=== PATIENT | female | born 1960 | race Caucasian/White ===

== ENCOUNTER 2017-05-19 09:47 | Outpatient (CLI) | payer BC | END 2017-05-19 09:48 | disposition home or self-care (01) | LOC: BICMRI 09:47 | PROVIDERS: ATTEND Orthopaedic Surgery | DX: M25.552 Pain in left hip (principal); S73.102A Unspecified sprain of left hip, initial encounter; M16.12 Unilateral primary osteoarthritis, left hip ==

== ENCOUNTER 2017-06-08 09:15 | Inpatient (IN) | payer BC ==
[2017-06-08 09:43] VITALS: BMI 19.5
--- NOTE | 2017-06-17 14:03 | HP ---
HISTORY OF PRESENT ILLNESS: The patient is a 57-year-old female with a several month history of prog ressive left hip and groin pain without injury. Pain is worse with activities. She has persisted de spite rest, restriction of activities. Attempted to use anti-inflammatory medications. This did cau se GI distress and discontinued. The pain is now interfering with day-to-day activities including wa lking, getting dressed, working, and sleeping. PAST MEDICAL HISTORY: The patient has history of hypertension, reflux, thyroid replacement, irritabl e bowel syndrome. CURRENT MEDICATIONS: Include levothyroxine, Benicar, fentanyl, Imitrex for migraine headaches, lubip rostone, spironolactone p.r.n., , Lunesta. ALLERGIES: She has no known allergies. FAMILY HISTORY: Otherwise unremarkable. SOCIAL HISTORY: Otherwise unremarkable. REVIEW OF SYSTEMS: Otherwise unremarkable. PHYSICAL EXAMINATION: GENERAL: Reveals a healthy, thin female. HEENT: Unremarkable. NECK: Supple. CHEST: Clear. HEART: Regular rate and rhythm. ABDOMEN: Soft and nontender. PELVIC/RECTAL/BREAST: Exams are deferred. EXTREMITIES: Pertinent findings of the left hip. There is tenderness in the left anterior hip and g roin area. There are no masses. There is decreased range of motion of the hip and groin pain with i nternal rotation of the hip. Leg lengths are equal and there is a left antalgic gait. NEUROVASCULAR: Intact IMAGING DATA: X-rays of the left hip reveal markedly severe DJD. MRI scan of the left hip reveals d egenerative labral tear and significant DJD to the hip which is more pronounced on plain x-rays. IMPRESSION: 1. Degenerative arthritis of left hip. 2. History of hypertension. 3. History of reflux. 4. History of thyroid replacement. 5. History of irritable bowel syndrome. PLAN: Left total hip replacement. The nature of the surgery, length of recovery, and potential comp lications such as infection, loss of motion, incomplete relief, neurovascular injury, thromboembolic phenomena, leg length discrepancy, possible transfusion, and need for revision have been discussed in detail.
[2017-06-21] MEDS ORDERED: CEFAZOLIN/Water 2 GM/20 ML SYRINGE ONE (08:48)
[2017-06-21] MEDS ORDERED: Fentanyl 100 MCG/2 ML VIAL ONE ×3 (09:29→13:08)
[2017-06-21] MEDS ORDERED: Midazolam HCl 2 mg/2 ml Vial ONE (09:29)
[2017-06-21] MEDS ORDERED: HYDROcodone/Acetaminophen 5/325 mg Tablet PO PRN (10:30)
[2017-06-21] MEDS ORDERED: traMADol HCl 50 MG TAB PO PRN ×3 (10:30→14:22)
[2017-06-21] MEDS ORDERED: Naloxone HCl 0.4 mg/ml Vial IV PRN (10:30)
[2017-06-21] MEDS ORDERED: fentaNYL Citrate/PF 1,250 MCG, Bupivacaine 25 ML in Sodium Chloride 0.9% 250 ML 200 ML EPIDURAL SCH (10:30)
[2017-06-21] MEDS ORDERED: Promethazine HCl 25 MG/ML VIAL IM PRN (10:30)
[2017-06-21] MEDS ORDERED: Promethazine HCl 25 MG SUPP PR PRN (10:30)
[2017-06-21] MEDS ORDERED: Ropivacaine 0.2% HCl/PF 20 ML ONE (10:43)
[2017-06-21] MEDS ORDERED: Lidocaine 2% Jelly 5 ML TUBE ONE (10:51)
[2017-06-21] MEDS ORDERED: Tranexamic Acid 1,000 MG in Sodium Chloride 0.9% 100 ML IVPB SCH ×2 (13:00→14:22)
--- NOTE | 2017-06-21 13:33 | OP ---
DATE OF PROCEDURE: 06/21/2017 PREOPERATIVE DIAGNOSIS: End-stage bicompartmental osteoarthritis, left hip. POSTOPERATIVE DIAGNOSIS: End-stage bicompartmental osteoarthritis, left hip. PROCEDURE PERFORMED: Press-fit left total hip arthroplasty. SURGEON: Nabil Whalen M.D. TAX EXAMINER: Jay Holley PA-C. ANESTHESIA: General via endotracheal tube augmented with indwelling epidural. ESTIMATED BLOOD LOSS: 250. COMPONENTS USED: [employer]. SPECIMENS: Trident PSL size 48 mm press fit acetabular shell with an Accolade press-fit, 132 degree neck angle size 2.5 hip stem, a 32 mm 10 degree polyethylene fixed bearing insert, and an 8+4 Biolox ceramic 32 mm ceramic head. FINDINGS: End-stage severe degenerative bicompartmental disease, bone on bone arthrosis, periarticul ar osteophyte formation, large serous effusion, hypertrophic synovium, and dysplastic acetabulum van ges consistent with bicompartmental end-stage disease. DRAINS: None. SPECIMENS: None. COMPLICATIONS: None. COUNTS: Correct. INDICATIONS FOR SURGERY: Juanita is a 57-year-old female who has had progressive hip, groin and thigh pain for the last 5-7 years, failing conservative management and elected to proceed with total hip a rthroplasty to treat her pain. PROCEDURE IN DETAIL: After informed consent was obtained in the preoperative holding area, the patie nt was taken to the operative suite where general anesthesia was induced. The patient was then posit ioned in the lateral decubitus position. The hip was then prepped and draped in usual sterile fashio n. The patient received preoperative antibiotics. Prior to incision, time-out was called and all me mbers of the surgical team agreed upon site, surgeon, and patient. After this, a longitudinal incisi on was made directly over the trochanter, noted by palpation extending 2 fingerbreadths above and bel ow the trochanter. The deeper subcutaneous layer was undermined with Bovie electrocautery. The ilio tibial band was encountered and incised sharply and the plane below this was developed bluntly. A wil retractor was placed to hold this opened. The lateral aspect of the trochanter and the abduct or muscles were encountered and then reflected anteriorly off the trochanter using Bovie electrocaute ry. Once this was completed, the anterior capsule was then encountered and identified and copious ca psulotomy was carried out, exposing the femoral neck and head. Dislocation maneuver was then performe d and an in situ provisional neck cut was then made using the oscillating saw. Attention was then tu rned to acetabular preparation and sequential reaming was carried out up to the appropriate diameter and a trial was then malleted into place with good firm resistance and no pullout. The permanent joel tabular shell was then malleted squarely into place, as was the appropriate liner. Once completed, t he wound was copiously irrigated and attention was then turned to femoral preparation. Flexion and ex ternal rotation was performed of the exposed thigh and femoral elevators were then placed at the prox imal aspect of the wound. Canal finder was used to establish the length of the canal and sequential reaming was carried out, followed by broaching. Once the appropriate stability was established with the trial broaches with both flexion, extension and rotational stability, we did trial with neutral a nd 2 mm offset incremental necks. Once the appropriate size was decided upon, with good stability no fior with flexion, extension, internal and external rotation and shuck being negative, we removed the femoral trial broach and malletted into place the permanent prosthesis with good firm fit, which was also stable to rotation. Again, the hip felt very stable to flexion, extension, internal and externa l rotation. Leg lengths appeared near anatomic clinically and we were quite happy with prosthesis pl acement. Copious irrigation was then carried out through the entirety of the wound. Primary closure of the abductors was accomplished with interrupted #2 Vicryl [id number] stitches and the IT ban d was then closed with interrupted #2 Vicryl, oversewn with a #2 running barbed Quill stitch. Subcut aneous fascia was closed with running barbed Quill stitch and a subcuticular Monocryl barbed Quill st itch was used for skin closure and augmented with skin cement. A sterile dressing was applied. The p rocedure was terminated without any complication. All counts were correct. The patient was awakened in the operative suite and taken to the recovery room in stable condition.
[2017-06-21] MEDS ORDERED: Ketorolac Tromethamine 30 MG/ML VIAL ONE (13:38)
[2017-06-21] MEDS ORDERED: Promethazine HCl 25 MG/ML VIAL ONE (13:54)
[2017-06-21] MEDS ORDERED: Zolpidem Tartrate 5 MG TAB PO PRN (14:22)
[2017-06-21] MEDS ORDERED: Lubiprostone 24 MCG CAP PO PRN ×2 (14:22→14:43)
[2017-06-21] MEDS ORDERED: Fentanyl 100 MCG/2 ML VIAL SLOW IVP PRN ×2 (14:22)
[2017-06-21] MEDS ORDERED: HYDROcodone/Acetaminophen 10/325 mg Tablet PO PRN ×2 (14:22)
[2017-06-21] MEDS ORDERED: Ketorolac Tromethamine 30 MG/ML VIAL IVP SCH (14:22)
[2017-06-21] MEDS ORDERED: Acetaminophen 325 MG TAB PO PRN (14:22)
[2017-06-21] MEDS ORDERED: Promethazine HCl 25 MG/ML VIAL SLOW IVP PRN (14:22)
[2017-06-21] MEDS ORDERED: Non-Formulary Item 1 EACH (Olopatadine Hcl [Olopatadine Hcl] 1 DROP) EA EYE PRN (14:22)
[2017-06-21] MEDS ORDERED: Non-Formulary Item 1 EACH (Sumatriptan Succinate [Imitrex] 100 MG) PO PRN (14:22)
[2017-06-21] MEDS ORDERED: diphenhydrAMINE 25 MG CAP PO PRN (14:22)
[2017-06-21] MEDS ORDERED: Ondansetron HCl/PF 4 MG/2 ML Vial IVP PRN (14:22)
[2017-06-21] MEDS ORDERED: SUMAtriptan Succinate 50 MG TAB PO PRN (14:48)
[2017-06-21] MEDS: Ketorolac Tromethamine 30 MG/ML VIAL IVP SCH ×3 (15:22→23:00)
[2017-06-21] MEDS: Sodium Chloride 0.9% 1,000 ML IV SCH (15:22)
[2017-06-21] MEDS ORDERED: Ondansetron HCl/PF 4 MG/2 ML Vial ONE (15:51)
[2017-06-21] MEDS ORDERED: Dexamethasone 20 MG/5 ML VIAL ONE (15:51)
[2017-06-21] MEDS ORDERED: Propofol 200 MG/20 ML VIAL ONE (15:51)
[2017-06-21] MEDS ORDERED: ePHEDrine/0.9% NaCl/PF SYRINGE 50 mg/10 ml ONE (15:51)
[2017-06-21] MEDS ORDERED: Glycopyrrolate 0.2 MG/ML 5 ML SYRINGE ONE (15:51)
--- NOTE | 2017-06-21 15:54 | RAD ---
TWO VIEWS LEFT HIP: INDICATIONS: Postop total hip. FINDINGS: There is a left total hip prosthesis that projects in the expected position. There is some bulging o f the medial margin of the acetabulum, which may be related to press fitting of the acetabular prosth esis. The left femoral prosthesis projects in the expected position. There are scattered intraartic ular and periarticular casts, consistent with the patient's recent postop state. IMPRESSION: Left total hip arthroplasty. POS: DEWEY
[2017-06-21] MEDS: Olmesartan 5 MG TAB PO SCH ×2 (16:02→21:01)
[2017-06-21] MEDS: CEFAZOLIN/Water 2 GM/20 ML SYRINGE SLOW IVP SCH (17:38)
[2017-06-21] MEDS: Ondansetron HCl/PF 4 MG/2 ML Vial IVP PRN (20:50)
[2017-06-21] MEDS: Senokot S 8.6-50 MG TAB PO SCH (20:57)
[2017-06-21] MEDS: Ferrous Gluconate 324 MG TAB PO SCH (20:58)
[2017-06-21] MEDS ORDERED: PIMECROLIMUS TOP SCH (21:00)
[2017-06-21] MEDS ORDERED: Vancomycin HCl 1 GM in Premix Bag 1 BAG IVPB SCH (21:00)
[2017-06-21] MEDS ORDERED: Aspirin 325 MG TAB PO SCH (21:00)
[2017-06-21] MEDS: Ketotifen Fumarate 0.025% Ophth Soln 5 ml Bottle EA EYE SCH ×2 (21:03→21:05)
[2017-06-21] MEDS: HYDROcodone/Acetaminophen 5/325 mg Tablet PO PRN (22:36)
[2017-06-22] MEDS: Sodium Chloride 0.9% 1,000 ML IV SCH ×3 (00:22→20:06)
[2017-06-22] MEDS: CEFAZOLIN/Water 2 GM/20 ML SYRINGE SLOW IVP SCH (00:43)
[2017-06-22 05:58] LABS: Hemoglobin 9.5 g/dL (12.0-16.0); Mean Corpuscular HGB CONC 33.5 g/dL (32.0-36.0); Mean Corpuscular Hemoglobin 32.9 pg (27.0-31.0); Mean Corpuscular Volume 98.3 fl (81.0-99.0); Mean Platelet Volume 6.2 fL (7.4-10.4); Platelet Count 177 thou/uL (130-400); RBC Distribution Width 11.1 % (11.5-14.5); Red Blood Cell (RBC) Count 2.89 mill/uL (4.20-5.40); White Blood Cell (WBC) Count 7.8 thou/uL (4.8-10.8)
[2017-06-22] MEDS: Ketorolac Tromethamine 30 MG/ML VIAL IVP SCH ×3 (06:23→18:37)
[2017-06-22] MEDS: HYDROcodone/Acetaminophen 5/325 mg Tablet PO PRN ×3 (08:21→20:55)
[2017-06-22] MEDS: Ferrous Gluconate 324 MG TAB PO SCH ×2 (08:24→20:53)
[2017-06-22] MEDS: Senokot S 8.6-50 MG TAB PO SCH ×2 (08:24→20:53)
[2017-06-22] MEDS: Multivitamin W/ Minerals 1 TAB PO SCH (08:24)
[2017-06-22] MEDS: Olmesartan 5 MG TAB PO SCH ×4 (08:25→20:53)
[2017-06-22] MEDS: Spironolactone 25 MG TAB PO SCH (08:25)
[2017-06-22] MEDS: Levothyroxine Sodium 50 MCG TAB PO SCH (08:26)
[2017-06-22] MEDS: Fluticasone Propionate Nasal Spray 16 gm Bottle NASAL SCH (08:28)
[2017-06-22] MEDS: Ketotifen Fumarate 0.025% Ophth Soln 5 ml Bottle EA EYE SCH ×3 (08:28→20:57)
[2017-06-22] MEDS ORDERED: Non-Formulary Item 1 EACH (Fluticasone Propionate [Flonase Allergy Relief] 1 SPRAY) EA NARE SCH (09:00)
[2017-06-22] MEDS ORDERED: Non-Formulary Item 1 EACH (Lansoprazole [Lansoprazole] 30 MG) PO SCH (09:00)
[2017-06-22] MEDS: Ondansetron HCl/PF 4 MG/2 ML Vial IVP PRN (09:59)
[2017-06-23] MEDS: Ketorolac Tromethamine 30 MG/ML VIAL IVP SCH ×2 (00:04→06:53)
[2017-06-23] MEDS: Sodium Chloride 0.9% 1,000 ML IV SCH (04:54)
[2017-06-23 05:50] LABS: Hemoglobin 9.7 g/dL (12.0-16.0); Mean Corpuscular HGB CONC 33.6 g/dL (32.0-36.0); Mean Corpuscular Hemoglobin 33.6 pg (27.0-31.0); Mean Platelet Volume 6.8 fL (7.4-10.4); Platelet Count 192 thou/uL (130-400); RBC Distribution Width 11.1 % (11.5-14.5); Red Blood Cell (RBC) Count 2.88 mill/uL (4.20-5.40); White Blood Cell (WBC) Count 7.1 thou/uL (4.8-10.8)
[2017-06-23] MEDS: HYDROcodone/Acetaminophen 5/325 mg Tablet PO PRN (07:17)
[2017-06-23] MEDS ORDERED: SUMAtriptan Succinate 6 MG/0.5 ML VIAL SC PRN (08:26)
[2017-06-23] MEDS: Senokot S 8.6-50 MG TAB PO SCH (10:06)
[2017-06-23] MEDS: Ferrous Gluconate 324 MG TAB PO SCH (10:06)
[2017-06-23] MEDS: Multivitamin W/ Minerals 1 TAB PO SCH (10:07)
[2017-06-23] MEDS: Spironolactone 25 MG TAB PO SCH (10:07)
[2017-06-23] MEDS: Levothyroxine Sodium 50 MCG TAB PO SCH (10:07)
[2017-06-23] MEDS: Olmesartan 5 MG TAB PO SCH ×2 (10:08→15:36)
[2017-06-23] MEDS: Ondansetron HCl/PF 4 MG/2 ML Vial IVP PRN (10:22)
[2017-06-23] MEDS ORDERED: HYDROcodone/Acetaminophen 10/325 mg Tablet PO PRN (11:09)
[2017-06-23] MEDS: HYDROcodone/Acetaminophen 10/325 mg Tablet PO PRN ×2 (11:22→15:33)
[2017-06-23] MEDS: Ondansetron ODT 4 MG TAB PO PRN ×2 (11:23→15:37)
[2017-06-23] MEDS: Fluticasone Propionate Nasal Spray 16 gm Bottle NASAL SCH (11:25)
[2017-06-23] MEDS: Ketotifen Fumarate 0.025% Ophth Soln 5 ml Bottle EA EYE SCH (11:25)
[2017-06-23 15:49] VITALS: BP 112/72; TEMP 98.6
== END 2017-06-23 17:46 | disposition home or self-care (01) | DRG 470 ==
LOC: SURG A 06-21 08:18 → SURG B 06-21 14:27
PROVIDERS: ADMIT Orthopaedic Surgery; ATTEND Orthopaedic Surgery
PROC: 0SRB04A Replacement of Left Hip Joint with Ceramic on Polyethylene Synthetic Substitute, Uncemented, Open Approach (ICD-10-PCS; principal; 2017-06-21)
DX: M16.12 Unilateral primary osteoarthritis, left hip (principal); I10 Essential (primary) hypertension; K21.9 Gastro-esophageal reflux disease without esophagitis; K58.9 Irritable bowel syndrome, unspecified; Z86.39 Personal history of other endocrine, nutritional and metabolic disease
CPT/HCPCS: 36415; 36416; 85027; A4216; G8978-GP-CM; G8979-GP-CJ; G8987-GO-CJ; G8988-GO-CI; J1100; J1885; J2250; J2405; J2550; J2704; J2795; J3010; J3370; J3490; J7050; Q0162

== ENCOUNTER 2017-06-08 09:37 | Outpatient (CLI) | payer BC ==
[2017-06-08 13:21] LABS: Bilirubin Negative (Negative); Blood, Urine Negative (Negative); Clarity CLEAR (Clear); Glucose, Urine (Dipstick) Negative (Negative); Leukocyte Negative (Negative); Nitrite Negative (Negative); Protein, Urine (Dipstick) Negative (Neg-Trace); Specific Gravity, Urine 1.009 (1.002-1.036); Urobilinogen 0.2 mg/dL (0.2-1.0)
[2017-06-08 13:29] LABS: Bacteria/HPF Rare-Few HPF (None Seen); Hyaline Casts/LPF 0-3 HYALINE CAST LPF (0-3 Hyaline); Pathc Cast-AUWi Flag 0.13 (0-2.49); RBC/HPF 0-3 HPF (0-3); Squamous Epithelial None Seen HPF (0-3); WBC/HPF None Seen HPF (0-3)
== END 2017-06-08 09:38 | disposition home or self-care (01) ==
LOC: LABBT 09:37
PROVIDERS: ATTEND Orthopaedic Surgery
DX: Z01.812 Encounter for preprocedural laboratory examination (principal); Z01.818 Encounter for other preprocedural examination; M16.12 Unilateral primary osteoarthritis, left hip
CPT/HCPCS: 81001; 87081; 87086; 93005; 93010

== ENCOUNTER 2017-06-17 12:24 | Outpatient (CLI) | payer BC ==
[2017-06-17 13:57] LABS: Hemoglobin 12.2 g/dL (12.0-16.0); Mean Corpuscular HGB CONC 33.7 g/dL (32.0-36.0); Mean Corpuscular Hemoglobin 32.9 pg (27.0-31.0); Mean Corpuscular Volume 97.6 fl (81.0-99.0); Mean Platelet Volume 6.6 fL (7.4-10.4); Platelet Count 256 thou/uL (130-400); RBC Distribution Width 11.1 % (11.5-14.5); White Blood Cell (WBC) Count 4.9 thou/uL (4.8-10.8)
[2017-06-17 14:03] LABS: Prothrombin Time 13.2 SEC (12.0-14.7)
[2017-06-17 14:25] LABS: Anion Gap 12 mmol/L (10-20); BUN (Urea Nitrogen) 15 mg/dL (9.8-20.1); Calc. Creatinine Clearance 0 mL/min (70-130); Calcium 9.5 mg/dL (7.8-10.44); Carbon Dioxide 26 mmol/L (22-29); Chloride 104 mmol/L (98-107); Estimated GFR-MDRD Greater than 90; Glucose 83 mg/dL (70-105); Potassium 3.9 mmol/L (3.5-5.1); Sodium 138 mmol/L (136-145)
== END 2017-06-17 12:25 | disposition home or self-care (01) ==
LOC: LABBT 12:24
PROVIDERS: ATTEND Orthopaedic Surgery
DX: Z01.812 Encounter for preprocedural laboratory examination (principal); M16.12 Unilateral primary osteoarthritis, left hip
CPT/HCPCS: 80048; 85027; 85610; 86850; 86900; 86901

== ENCOUNTER 2017-08-30 11:58 | Outpatient (CLI) | payer BC | END 2017-08-30 11:59 | disposition home or self-care (01) | LOC: BICMAMMO 11:58 | PROVIDERS: ATTEND Family Medicine | DX: Z12.31 Encounter for screening mammogram for malignant neoplasm of breast (principal); Z80.3 Family history of malignant neoplasm of breast | CPT/HCPCS: 77063; 77067 ==

== ENCOUNTER 2018-09-21 12:09 | Outpatient (CLI) | payer BC ==
--- NOTE | 2018-09-21 12:44 | MMO ---
Bilateral MAMMO Bilat Screen [facility]. CLINICAL HISTORY: Patient is 58 years old and is seen for screening. The patient has the following family history of breast cancer: maternal aunt. The patient has no personal history of cancer. VIEWS: The views performed were: bilateral craniocaudal with tomosynthesis and bilateral mediolateral oblique with tomosynthesis. FILMS COMPARED: The present examination has been compared to prior imaging studies performed at 08/21/2016 and 08/30/2017. MAMMOGRAM FINDINGS: There are scattered fibroglandular densities. There are stable benign appearing calcifications seen in both breasts. There are no suspicious masses, suspicious calcifications, or new areas of architectural distortion. IMPRESSION: THERE IS NO MAMMOGRAPHIC EVIDENCE OF MALIGNANCY. A ROUTINE FOLLOW-UP MAMMOGRAM IN 1 YEAR IS RECOMMENDED. THE RESULTS OF THIS EXAM WERE SENT TO THE PATIENT. ACR BI-RADS Category 2 - Benign finding MAMMOGRAPHY NOTE: 1. A negative mammogram report should not delay a biopsy if a dominant of clinically suspicious mass is present. 2. Approximately 10% to 15% of breast cancers are not detected by mammography. 3. Adenosis and dense breasts may obscure an underlying neoplasm.
== END 2018-09-21 12:10 | disposition home or self-care (01) ==
LOC: BICMAMMO 12:09
PROVIDERS: ATTEND Family Medicine
DX: Z12.31 Encounter for screening mammogram for malignant neoplasm of breast (principal); Z80.3 Family history of malignant neoplasm of breast
CPT/HCPCS: 77063; 77067

== ENCOUNTER 2019-08-04 19:54 | Observation (INO) | payer BC ==
[2019-08-04 20:17] LABS: #Basophils 0.1 thou/uL (0.0-0.2); #Eosinphils 0.2 thou/uL (0.0-0.7); #Monocytes 0.4 thou/uL (0.11-0.59); #Neutrophils 2.7 thou/uL (1.40-6.50); %Basophils 1.2 % (0.0-1.0); %Eosinophils 2.6 % (0.0-10.0); %Lymphocytes 48.1 % (21.0-51.0); %Monocytes 5.6 % (0.0-10.0); %Neutrophils 42.6 % (42.0-75.0); Hemoglobin 13.4 g/dL (12.0-16.0); Mean Corpuscular HGB CONC 33.4 g/dL (32.0-36.0); Mean Corpuscular Hemoglobin 33.4 pg (27.0-31.0); Mean Platelet Volume 6.8 fL (7.4-10.4); Platelet Count 276 thou/uL (130-400); RBC Distribution Width 11.1 % (11.5-14.5); Red Blood Cell (RBC) Count 4.02 mill/uL (4.20-5.40); White Blood Cell (WBC) Count 6.3 thou/uL (4.8-10.8)
--- NOTE | 2019-08-04 20:23 | RAD ---
Chest one view HISTORY: Chest pain. COMPARISON: 03/17/2016. FINDINGS: Cardiac silhouette and pulmonary vasculature are unremarkable. Mediastinum is midline. No c onfluent space consolidation or evidence of pneumothorax. piper helper leads overlie the chest. IMPRESSION : No active cardiopulmonary abnormalities are demonstrated.
[2019-08-04 20:35] LABS: ALT (SGPT) 19 U/L (8-55); AST (SGOT) 17 U/L (5-34); Albumin 4.8 g/dL (3.4-4.8); Alkaline Phosphatase 103 U/L (40-110); Anion Gap 13 mmol/L (10-20); BUN (Urea Nitrogen) 8 mg/dL (9.8-20.1); Bilirubin, Total 0.4 mg/dL (0.2-1.2); CK (CPK) 50 U/L (29-168); Calc. Creatinine Clearance 0 mL/min (70-130); Carbon Dioxide 28 mmol/L (23-31); Chloride 103 mmol/L (98-107); Estimated GFR-MDRD 70; Globulin 3.1 g/dL (2.4-3.5); Glucose 139 mg/dL (80-115); Lipase 85 U/L (8-78); Potassium 3.5 mmol/L (3.5-5.1); Protein, Total 7.9 g/dL (6.0-8.3); Sodium 140 mmol/L (136-145)
[2019-08-04] MEDS ORDERED: Aspirin Chewable 81 MG TAB ONE (20:53)
[2019-08-04] MEDS ORDERED: Lidocaine Viscous Sol 2% 15 ml UD Cup ONE (21:03)
[2019-08-04] MEDS ORDERED: Mag-Al 1200 mg/1200 mg/30 ML UDCUP ONE (21:03)
[2019-08-04 22:40] VITALS: BMI 18.1
[2019-08-05] MEDS ORDERED: Senokot S 8.6-50 MG TAB PO PRN (00:04)
[2019-08-05] MEDS ORDERED: Acetaminophen 325 MG TAB PO PRN (00:04)
[2019-08-05 00:07] LABS: Troponin I 0.027 ng/mL (< 0.028)
[2019-08-05] MEDS ORDERED: ALPRAZolam 1 MG TAB PO SCH ×2 (00:45→21:00)
--- NOTE | 2019-08-05 01:29 | HP ---
PRIMARY CARE PHYSICIAN: Dr. Staley over in [facility]. CHIEF COMPLAINT: Chest pain. HISTORY OF PRESENT ILLNESS: Ms. Dickey is a very pleasant 59-year-old female who reports intermittent chest pain over the last 4 days. She reports sharp chest pain, substernal. She reports that she does get some diaphoresis and a little bit of nausea and epigastric discomfort with this. She denies any dyspnea or syncope. She reports a history of hypertension and a family history of coronary artery disease. She reports that she was seen for a while by Dr. Dewey, because of her family history, but Dr. Dewey did not see a need to see her after several tests were negative. She denies having a cardiac cath, but does says that she has had several stress tests, which have been negative. She has not had a stress test or echocardiogram in the last year. While she was seen in the ER, she had an EKG which showed a normal sinus rhythm, incomplete right bundle branch block, ST segments are normal, T-waves are normal. Lab work largely unremarkable, although she did have a lipase of 85, BUN of 8, glucose 139, hemoglobin 13.4, hematocrit 40.2, and platelet count was 276. Chest x-ray was also unremarkable. Her heart score was 4 and as such, she was a candidate for observations and further monitoring and ACS rule out. REVIEW OF SYSTEMS: Reports chest pain, sharp, substernal. Reports some dyspnea on exertion. Reports diaphoresis. Reports some nausea, epigastric discomfort. Denies any acute shortness of breath. Denies any nausea, vomiting, diarrhea. Denies any fever or chills. All systems are reviewed and are negative unless mentioned above or in HPI. PAST MEDICAL HISTORY: Pertinent for hypertension, insomnia, hypothyroidism, migraines. PAST SURGICAL HISTORY: She has had a jaw surgery, , left hip replacement. PSYCHIATRIC HISTORY: None. SOCIAL HISTORY: Lives at home with her family. Denies any drug use. No smoking history. PHYSICAL EXAMINATION: VITAL SIGNS: Blood pressure 140/85, MAP 103, pulse is 59, respiratory rate is 16, temp is 98.3, pO2 sats are 99% on room air. CONSTITUTIONAL: The patient appears in no distress. She is alert and oriented to person, place and time. HEAD: Atraumatic and normocephalic. Eyes, pupils equally round and reactive to light. Extraocular muscles are intact. NECK: Normal range of motion. Trachea is midline. RESPIRATORY: Chest breath sounds are clear. Chest expansion is equal. CARDIOVASCULAR: Regular rate and rhythm. Mild holosystolic murmur. ABDOMEN: Nontender. Bowel sounds are heard. BACK: Normal range of motion, no tenderness. EXTREMITIES: Upper extremity normal range of motion. No tenderness. Lower extremity, normal range of motion. Pedal pulses are normal. No edema is noted. NEUROLOGIC: The patient is oriented to person, place, and time. Speech is normal. SKIN: Warm, dry and normal in color of skin visualized. ALLERGIES: SULFA. CURRENT MEDICATIONS: 1. Xanax 2 mg p.o. at bedtime. 2. as needed. 3. Olmesartan 5 mg one tab b.i.d. 4. Fiorinal 1 tab q.6 hours p.r.n. 5. Desonide 0.05% as needed. 6. Amitiza 24 mcg p.o. once daily. 7. Fluconazole 1 spray each nares once daily. 8. Compazine 10 mg q.8 hours p.r.n. 9. Levothyroxine 50 mcg p.o. once daily. 10. Lunesta 3 mg p.o. once daily. 11. Spironolactone 25 mg p.o. once daily. 12. Sumatriptan 100 mg p.o. once daily. PLAN/ASSESSMENT: 1. Chest pain, trend troponins. Stress test ordered for the a.m. aspirin daily. 2. History of hypertension. We will continue home medications. We will trend. 3. History of hypothyroidism. She reports that she has not had her levels checked in a year, so we will go ahead and order a TSH and a free T4. 4. Gastroesophageal reflux disease. She reports that she takes a little pink pill, which was not on her med list, so we will go ahead and start her on some Protonix daily. 5. We will recheck the lipase and amylase for the a.m. 6. Gastrointestinal and deep venous thrombosis prophylaxis started. 7. Case discussed with Dr. Tariq Peter who agrees with plan. 8. Hospital course dependent on clinical findings. Job ID: [id number]
[2019-08-05 03:35] LABS: #Basophils 0.1 thou/uL (0.0-0.2); #Eosinphils 0.2 thou/uL (0.0-0.7); #Lymphocytes 2.5 thou/uL (1.20-3.40); #Monocytes 0.4 thou/uL (0.11-0.59); #Neutrophils 2.9 thou/uL (1.40-6.50); %Basophils 1.2 % (0.0-1.0); %Lymphocytes 41.2 % (21.0-51.0); %Monocytes 6.8 % (0.0-10.0); %Neutrophils 47.9 % (42.0-75.0); Hemoglobin 11.4 g/dL (12.0-16.0); Mean Corpuscular HGB CONC 33.2 g/dL (32.0-36.0); Mean Corpuscular Hemoglobin 33.1 pg (27.0-31.0); Mean Corpuscular Volume 99.7 fL (78.0-98.0); Platelet Count 240 thou/uL (130-400); RBC Distribution Width 11.1 % (11.5-14.5); Red Blood Cell (RBC) Count 3.46 mill/uL (4.20-5.40); White Blood Cell (WBC) Count 6.1 thou/uL (4.8-10.8)
[2019-08-05 03:59] LABS: ALT (SGPT) 16 U/L (8-55); AST (SGOT) 14 U/L (5-34); Albumin 4.1 g/dL (3.4-4.8); Alkaline Phosphatase 87 U/L (40-110); Anion Gap 11 mmol/L (10-20); BUN (Urea Nitrogen) 12 mg/dL (9.8-20.1); Bilirubin, Total 0.2 mg/dL (0.2-1.2); Calc. Creatinine Clearance 62 mL/min (70-130); Calcium 9.1 mg/dL (7.8-10.44); Carbon Dioxide 28 mmol/L (23-31); Cardiac Risk 2.4 (Less than 4.5); Chloride 105 mmol/L (98-107); Cholesterol 219 mg/dl (< 200 Desired); Estimated GFR-MDRD 76; Globulin 2.7 g/dL (2.4-3.5); Glucose 96 mg/dL (80-115); HDL Cholesterol 90 mg/dL (>60 Neg Risk); LDL Cholesterol, Calculated 120 mg/dL; Lipase 65 U/L (8-78); Potassium 3.8 mmol/L (3.5-5.1); Protein, Total 6.8 g/dL (6.0-8.3); Sodium 140 mmol/L (136-145); Triglycerides 46 mg/dL (Less than 150)
[2019-08-05 04:01] LABS: Troponin I 0.016 ng/mL (< 0.028)
[2019-08-05 04:15] LABS: Thyroid Stimulating Hormone 2.6383 uIU/mL (0.35-4.94)
[2019-08-05] MEDS ORDERED: Levothyroxine Sodium 50 MCG TAB PO SCH (06:00)
--- NOTE | 2019-08-05 08:10 | ULT ---
EXAM: US Gallbladder RUQ CLINICAL HISTORY: Elevated lipase. Epigastric pain.. COMPARISON: None. FINDINGS: Pancreas: The head and body of the pancreas have a normal echotexture. The remainder the pancreas is obscured by bowel gas Liver:Hepatic parenchyma has a normal echotexture. No hepatic masses or intrahepatic biliary dilatati on. Right hepatic lobe: 14.5 cm Gallbladder: Surgically absent Bennett's sign:Not applicable Portal Vein: Patent. Appropriate directional flow Bile ducts: 0.4 cm common bile duct diameter Right kidney: No hydronephrosis. Right kidney measures 9.2 x 4.6 x 3.5 cm in length. IMPRESSION: 1. Surgically absent gallbladder 2. No acute abnormality in the visualized right upper quadrant.
[2019-08-05] MEDS ORDERED: ADENOSINE 60 MG/20 ML VIAL ONE (08:49)
[2019-08-05] MEDS ORDERED: Aspirin 325 mg Enteric Coated Tablet PO SCH (09:00)
[2019-08-05] MEDS ORDERED: Ketotifen Fumarate 0.025% Ophth Soln 5 ml Bottle EA EYE SCH (09:00)
[2019-08-05] MEDS ORDERED: Losartan 25 MG TAB PO SCH (09:00)
[2019-08-05] MEDS ORDERED: Spironolactone 25 MG TAB PO SCH (09:00)
--- NOTE | 2019-08-05 12:29 | NM ---
EXAM: NM Cardiac Stress W EF WF PROVIDED CLINICAL HISTORY: Chest pain COMPARISON: 03/18/2016 RADIOPHARMACEUTICAL: 33 millicuries technetium 99m labeled sestamibi IV stress 9.3 millicuries technetium 99m labeled sestamibi IV rest FINDINGS: There is normal, homogeneous distribution of radiotracer throughout the left ventricular myocardium. Gated data demonstrate normal myocardial wall motion and thickening with calculated LVEF 82%. Calculated TID is 1.02. IMPRESSION: 1. No scintigraphic evidence for ischemia. 2. Calculated LVEF 82%.
[2019-08-05 16:01] VITALS: BP 150/73; TEMP 98.1
--- NOTE | 2019-08-07 10:19 | DIS ---
DATE OF ADMISSION: 08/04/2019 DATE OF DISCHARGE: 08/05/2019 DISCHARGE DIAGNOSES: 1. Chest pain, noncardiac. 2. Hypertension, stable. 3. Hypothyroidism. 4. Gastroesophageal reflux, stable. CONSULTATIONS: None. PERTINENT LABORATORY AND X-RAY FINDINGS: Complete metabolic profile within normal limits. Troponin I negative x3. Total cholesterol 219, triglycerides 46, HDL 90, and LDL 120. Lipase ranged between 65 to 85. TSH 2.64, free T4 level 1.0. CBC showed a hemoglobin ranging between 11.4 to 13.4, MCV 100. Portable chest x-ray dated 08/04/2019 showed no acute cardiopulmonary process. Abdominal ultrasound dated 08/05/2019 showed no acute intraabdominal process. Cardiolite stress test dated 08/05/2019 showed no evidence for reversible ischemia. Calculated ejection fraction 82%. HOSPITAL COURSE: The patient was initially observed on the telemetry unit after presenting with chest pain. The patient underwent serial cardiac biomarkers x3, which were negative as stated previously. Initial EKG showed questionable incomplete right bundle-branch block pattern, however, no evidence of enzymatic ischemia. The patient proceeded to Cardiolite stress testing showing no evidence of reversible ischemia with calculated ejection fraction of 82%. Metabolic survey showed a mild elevation to lipase at 85, decreasing to 65 by the time of discharge. No acute intraabdominal process was identified on abdominal ultrasound. Overall, the patient did remain clinically stable during the hospital course with stable vital signs. I have examined the patient at the time of discharge and discussed followup instructions. The patient verbalized understanding and agreement and ready for discharge on 08/05/2019. DISCHARGE MEDICATIONS: 1. Alprazolam 1 mg p.o. q.h.s. p.r.n. 2. Fiorinal 1 tablet p.o. q.6 hours p.r.n. 3. Clindamycin 1%/niacinamide 4% one application topically b.i.d. 4. Desonide 0.05% one application topically b.i.d. p.r.n. 5. Lunesta 3 mg p.o. q.h.s. p.r.n. 6. Fluocinonide-E 0.05% cream topically daily p.r.n. 7. Flonase 1 spray in each naris daily. 8. Levothyroxine 50 mcg p.o. daily. 9. Amitiza 1 tablet p.o. daily. 10. Benicar 5 mg p.o. b.i.d. 11. Olopatadine one drop to each eye b.i.d. 12. Elidel 1% one application topically b.i.d. p.r.n. 13. Spironolactone 25 mg p.o. daily. 14. Imitrex 100 mg p.o. q.2 hours p.r.n. migraine headaches. FOLLOWUP: The patient may follow up with her primary care provider, Dr. Kelley Staley. CONDITION ON DISCHARGE: Stable. ACTIVITY: Ad-radha. DIET: Heart healthy. CODE STATUS: Full. DISPOSITION: To home on 08/05/2019. Job ID: [id number]
--- NOTE | 2019-08-12 11:43 | EKG ---
Test Reason : Blood Pressure : / mmHG Vent. Rate : 068 BPM Atrial Rate : 068 BPM P-R Int : 196 ms QRS Dur : 094 ms QT Int : 394 ms P-R-T Axes : 061 008 067 degrees QTc Int : 418 ms Normal sinus rhythm Incomplete right bundle branch block Septal infarct , age undetermined Abnormal ECG Confirmed by JOHN MULTANI ([id number]), assignment editor MILIND BARRERA ([id number]) on 08/12/2019 11:42:42 AM Referred By: Confirmed By:JOHN Fitzgerald
== END 2019-08-05 16:05 | disposition home or self-care (01) ==
LOC: ERS 19:54 → 2NO 21:36
PROVIDERS: ADMIT Internal Medicine; ATTEND Internal Medicine
DX: R07.89 Other chest pain (principal); I10 Essential (primary) hypertension; E03.9 Hypothyroidism, unspecified; K21.9 Gastro-esophageal reflux disease without esophagitis; Z79.899 Other long term (current) drug therapy; Z88.2 Allergy status to sulfonamides
CPT/HCPCS: 36415; 71045; 76705; 78452; 80053; 80061; 82150; 82550; 83690; 84439; 84443; 84484; 85025; 93005; 93017; A9500; G0378; J0153

== ENCOUNTER 2019-10-13 12:08 | Outpatient (CLI) | payer BC ==
--- NOTE | 2019-10-13 13:01 | MMO ---
Bilateral MAMMO Bilat Screen [facility]. CLINICAL HISTORY: Patient is 59 years old and is seen for screening. The patient has the following family history of breast cancer: maternal aunt. The patient has no personal history of cancer. VIEWS: The views performed were: bilateral craniocaudal with tomosynthesis and bilateral mediolateral oblique with tomosynthesis. FILMS COMPARED: The present examination has been compared to prior imaging studies performed at [facility] on 08/20/2015, 08/21/2016, 08/30/2017 and 09/21/2018. This study has been interpreted with the assistance of computer-aided detection. MAMMOGRAM FINDINGS: There are scattered fibroglandular densities. There are stable benign appearing calcifications seen in both breasts. There are also vascular calcifications. There are no suspicious masses, suspicious calcifications, or new areas of architectural distortion. IMPRESSION: THERE IS NO MAMMOGRAPHIC EVIDENCE OF MALIGNANCY. A ROUTINE FOLLOW-UP MAMMOGRAM IN 1 YEAR IS RECOMMENDED. THE RESULTS OF THIS EXAM WERE SENT TO THE PATIENT. ACR BI-RADS Category 2 - Benign finding MAMMOGRAPHY NOTE: 1. A negative mammogram report should not delay a biopsy if a dominant of clinically suspicious mass is present. 2. Approximately 10% to 15% of breast cancers are not detected by mammography. 3. Adenosis and dense breasts may obscure an underlying neoplasm. Reported by: HARVEY KENNEDY MD Electonically Signed: [id number]
== END 2019-10-13 12:09 | disposition home or self-care (01) ==
LOC: BICMAMMO 12:08
PROVIDERS: ATTEND Obstetrics & Gynecology
DX: Z12.31 Encounter for screening mammogram for malignant neoplasm of breast (principal); Z80.3 Family history of malignant neoplasm of breast
CPT/HCPCS: 77063; 77067

== ENCOUNTER 2021-10-16 11:03 | Outpatient (CLI) | payer BC | END 2021-10-16 11:04 | disposition home or self-care (01) | LOC: BICMAMMO 11:03 | PROVIDERS: ATTEND Family Medicine | DX: Z12.31 Encounter for screening mammogram for malignant neoplasm of breast (principal); Z80.3 Family history of malignant neoplasm of breast | CPT/HCPCS: 77063; 77067 ==

== ENCOUNTER 2021-11-26 07:51 | Outpatient (CLI) | payer BC ==
[2021-11-26 09:54] LABS: #Eosinphils 0.3 10x3/uL (0.0-0.5); #Monocytes 0.4 10x3/uL (0.0-1.1); #Neutrophils 2.2 10x3/uL (1.5-8.4); %Basophils 0.8 % (0.0-2.0); %Eosinophils 5.2 % (0.0-6.0); %Lymphocytes 41.4 % (18.0-47.0); %Monocytes 8.2 % (0.0-10.0); %Neutrophils 44.2 % (40.0-75.0); Hemoglobin 11.8 g/dL (12.0-15.5); Mean Corpuscular HGB CONC 34.1 g/dL (32.0-36.0); Mean Corpuscular Hemoglobin 33.1 pg (27.0-33.0); Mean Corpuscular Volume 96.9 fl (81.6-98.3); Mean Platelet Volume 9.6 fl (7.4-10.4); Platelet Count 257 10x3/uL (150-450); RBC Distribution Width 11.9 % (11.5-14.5); Red Blood Cell (RBC) Count 3.57 10x6/uL (3.90-5.03)
[2021-11-26 10:01] LABS: Anion Gap 12 mmol/L (10-20); BUN (Urea Nitrogen) 10 mg/dL (9.8-20.1); Calc. Creatinine Clearance 0 mL/min (70-130); Calcium 9.5 mg/dL (7.8-10.44); Carbon Dioxide 28 mmol/L (23-31); Chloride 103 mmol/L (98-107); Estimated GFR 76; Glucose 76 mg/dL (80-115); Sodium 139 mmol/L (136-145)
== END 2021-11-26 07:52 | disposition home or self-care (01) ==
LOC: LABBT 07:51
PROVIDERS: ATTEND Orthopaedic Surgery Hand Surgery
DX: Z01.818 Encounter for other preprocedural examination (principal); M65.311 Trigger thumb, right thumb; Z20.822 Contact with and (suspected) exposure to COVID-19
CPT/HCPCS: 80048; 85025; 87811; 93005; 93010

== ENCOUNTER 2021-11-28 05:31 | Day surgery (SDC) | payer BC ==
[2021-11-26 11:06] VITALS: BMI 18.7
[2021-11-28] MEDS ORDERED: Bupivacaine PF 0.5% 30 ML VIAL ONE (06:17)
[2021-11-28] MEDS ORDERED: Neomycin-Polymyxin 1 ML AMP ONE (06:17)
[2021-11-28] MEDS ORDERED: Bacitracin Zinc Ointment 30 gm TUBE ONE (06:17)
[2021-11-28] MEDS ORDERED: Betamet Acet/Betamet Na Ph 30 MG/5 ML VIAL ONE (06:17)
[2021-11-28] MEDS ORDERED: fentaNYL Citrate/PF 100 MCG/2 ML SYRINGE ONE (06:41)
[2021-11-28] MEDS ORDERED: Sodium Chloride 0.9% 100 ML ONE (07:01)
[2021-11-28] MEDS ORDERED: CEFAZOLIN 2 GM VIAL ONE (07:01)
[2021-11-28] MEDS ORDERED: Famotidine/PF 20 mg/2ml Vial ONE (07:02)
[2021-11-28] MEDS ORDERED: Ketorolac Tromethamine 30 MG/ML VIAL ONE (09:01)
== END 2021-11-28 10:45 | disposition home or self-care (01) ==
LOC: SDC 05:31
PROVIDERS: ATTEND Orthopaedic Surgery Hand Surgery
PROC: 0LN70ZZ Release Right Hand Tendon, Open Approach (ICD-10-PCS; principal; 2021-11-28)
DX: M65.311 Trigger thumb, right thumb (principal); K21.9 Gastro-esophageal reflux disease without esophagitis; K58.9 Irritable bowel syndrome, unspecified; I10 Essential (primary) hypertension; G43.909 Migraine, unspecified, not intractable, without status migrainosus; E03.9 Hypothyroidism, unspecified; M06.9 Rheumatoid arthritis, unspecified; Z79.890 Hormone replacement therapy; Z79.899 Other long term (current) drug therapy; Z88.2 Allergy status to sulfonamides
CPT/HCPCS: J0690; J0702; J1885; J3490; S0020; S0028

== ENCOUNTER 2021-12-11 14:43 | Outpatient (CLI) | payer BC | END 2021-12-11 14:44 | disposition home or self-care (01) | LOC: BICRAD 14:43 | PROVIDERS: ATTEND Internal Medicine Rheumatology | DX: M25.571 Pain in right ankle and joints of right foot (principal); M19.071 Primary osteoarthritis, right ankle and foot ==

== ENCOUNTER 2022-05-28 07:57 | Outpatient (CLI) | payer BC ==
[2022-05-28 09:28] LABS: #Eosinphils 0.2 10x3/uL (0.0-0.5); #Monocytes 0.4 10x3/uL (0.0-1.1); #Neutrophils 2.4 10x3/uL (1.5-8.4); %Basophils 0.6 % (0.0-2.0); %Lymphocytes 42.5 % (18.0-47.0); %Monocytes 7.9 % (0.0-10.0); %Neutrophils 45.8 % (40.0-75.0); Hemoglobin 12.5 g/dL (12.0-15.5); Mean Corpuscular HGB CONC 33.2 g/dL (32.0-36.0); Mean Corpuscular Hemoglobin 32.1 pg (27.0-33.0); Mean Corpuscular Volume 96.4 fl (81.6-98.3); Mean Platelet Volume 9.1 fl (7.4-10.4); Platelet Count 315 10x3/uL (150-450); RBC Distribution Width 11.9 % (11.5-14.5); White Blood Cell (WBC) Count 5.3 10x3/uL (3.5-10.5)
[2022-05-28 09:43] LABS: Anion Gap 15 mmol/L (10-20); BUN (Urea Nitrogen) 11 mg/dL (9.8-20.1); Calc. Creatinine Clearance 0 mL/min (70-130); Carbon Dioxide 26 mmol/L (23-31); Chloride 101 mmol/L (98-107); Estimated GFR 72; Glucose 80 mg/dL (80-115); INR-International Normal Ratio 0.9; Potassium 4.2 mmol/L (3.5-5.1); Prothrombin Time 9.8 sec (9.5-12.1); Sodium 138 mmol/L (136-145)
== END 2022-05-28 07:58 | disposition home or self-care (01) ==
LOC: LABBT 07:57
PROVIDERS: ATTEND Orthopaedic Surgery
DX: Z01.818 Encounter for other preprocedural examination (principal); M16.11 Unilateral primary osteoarthritis, right hip
CPT/HCPCS: 80048; 85025; 85610; 87081; 93005; 93010

== ENCOUNTER 2022-06-02 05:29 | Observation (INO) | payer BC ==
[2022-05-29 14:29] VITALS: BMI 18.3
[2022-06-02] MEDS ORDERED: Sodium Chloride 0.9% 100 ML ONE ×2 (06:11→06:58)
[2022-06-02] MEDS ORDERED: Tranexamic Acid 1,000 MG/10 ML VIAL ONE (06:11)
[2022-06-02] MEDS ORDERED: Vancomycin 1 GM/200 ML (FROZEN) BAG ONE (06:11)
[2022-06-02] MEDS ORDERED: Bupivacaine/Epinephrine 0.25% 30 ML VIAL ONE (06:28)
[2022-06-02] MEDS ORDERED: Fentanyl 100 MCG/2 ML VIAL ONE (06:39)
[2022-06-02] MEDS ORDERED: CEFAZOLIN 2 GM VIAL ONE (06:58)
[2022-06-02] MEDS ORDERED: Bupivacaine 0.25% HCL 30 ML VIAL ONE (07:07)
[2022-06-02] MEDS ORDERED: diphenhydrAMINE 25 MG CAP PO PRN (07:15)
[2022-06-02] MEDS ORDERED: diphenhydrAMINE 50 MG/ML VIAL IM PRN (07:15)
[2022-06-02] MEDS ORDERED: Bupivacaine 0.25% 10 ML VIAL EPIDURAL PRN (07:15)
[2022-06-02] MEDS ORDERED: Ondansetron PF 4 MG/2 ML Vial IVP PRN (07:15)
[2022-06-02] MEDS ORDERED: HYDROcodone/Acetaminophen 5/325 mg Tablet PO PRN (07:15)
[2022-06-02] MEDS ORDERED: Zolpidem Tartrate 5 MG TAB PO PRN (07:15)
[2022-06-02] MEDS ORDERED: Promethazine HCl 25 MG/ML VIAL IM PRN (07:15)
[2022-06-02] MEDS ORDERED: Promethazine HCl 25 MG SUPP PR PRN (07:15)
[2022-06-02] MEDS ORDERED: Lidocaine 1.5% w/Epi 1:200K 30 ML VIAL (Epid Use) ONE (07:15)
[2022-06-02] MEDS ORDERED: Rocuronium Bromide 10 MG/ML (10ML VIAL) ONE (07:15)
[2022-06-02] MEDS ORDERED: Dexamethasone 20 MG/5 ML VIAL ONE (07:15)
[2022-06-02] MEDS ORDERED: Glycopyrrolate 0.2 MG/ML 5 ML SYRINGE ONE (07:15)
[2022-06-02] MEDS ORDERED: Naloxone HCl 0.4 mg/ml Vial IVP PRN (07:15)
[2022-06-02] MEDS ORDERED: Ondansetron PF 4 MG/2 ML Vial ONE (07:15)
[2022-06-02] MEDS ORDERED: traMADol HCl 50 MG TAB PO PRN ×2 (07:15)
[2022-06-02] MEDS ORDERED: diphenhydrAMINE 50 MG/ML VIAL IVP PRN (07:15)
[2022-06-02] MEDS ORDERED: PROPOFOL 200 MG/20 ML VIAL ONE (07:15)
[2022-06-02] MEDS ORDERED: Moisturizing Cream (Eucerin) 113 GM JAR TOP PRN (07:15)
[2022-06-02] MEDS ORDERED: NEOSTIGMINE 3 MG/3 ML SYR 3 MG/3 ML SYRINGE ONE (07:15)
[2022-06-02] MEDS ORDERED: Fentanyl/Bupivacaine 100 ML EPIDURAL SCH ×2 (07:15→12:30)
[2022-06-02] MEDS ORDERED: Naloxone HCl 0.4 mg/ml Vial IV PRN (07:15)
[2022-06-02 07:26] LABS: SARS-CoV-2 NAA Rapid Test Not Detected (NotDetected)
[2022-06-02] MEDS ORDERED: HYDROcodone/Acetaminophen 10/325 mg Tablet PO PRN ×2 (09:04)
[2022-06-02] MEDS ORDERED: Acetaminophen 325 MG TAB PO PRN (09:04)
[2022-06-02] MEDS ORDERED: Promethazine HCl 25 MG/ML VIAL ONE (09:26)
[2022-06-02] MEDS: Ketorolac Tromethamine 30 MG/ML VIAL IVP SCH ×3 (12:38→23:33)
[2022-06-02] MEDS: Dextrose 5 %-0.45 % NaCl 1,000 ML IV SCH ×2 (12:39→19:21)
[2022-06-02] MEDS: CEFAZOLIN 2 GM in Sodium Chloride 0.9% 100 ML IVPB SCH ×2 (15:25→22:49)
[2022-06-02] MEDS: Aspirin 81 mg Enteric Coated Tablet PO SCH (20:40)
[2022-06-02] MEDS ORDERED: ALPRAZolam 1 MG TAB PO SCH (21:00)
[2022-06-02] MEDS ORDERED: ACETAMIN PO PRN (21:10)
[2022-06-02] MEDS ORDERED: CODEINE PO PRN (21:10)
[2022-06-02] MEDS ORDERED: BUTALBIT PO PRN (21:10)
[2022-06-02] MEDS ORDERED: CAFF PO PRN (21:10)
[2022-06-02] MEDS ORDERED: NIACINAMIDE TOP PRN (21:12)
[2022-06-02] MEDS ORDERED: CLINDAMYCIN TOP PRN (21:12)
[2022-06-02] MEDS ORDERED: Hydrocortisone 1% Cream 30 GM TUBE TOP PRN (21:15)
[2022-06-02] MEDS ORDERED: Famotidine 20 MG TAB PO PRN (21:17)
[2022-06-02] MEDS ORDERED: Betamethasone 0.1% Cream 15 GM TUBE TOP PRN (21:19)
[2022-06-02] MEDS ORDERED: Fluticasone Propionate Nasal Spray 16 gm Bottle NASAL PRN (21:20)
[2022-06-02] MEDS ORDERED: Hydrocortisone Acetate 25 MG Suppository PR PRN (21:21)
[2022-06-02] MEDS ORDERED: KETOCONAZOLE 2% TOP PRN (21:24)
[2022-06-02] MEDS ORDERED: Hydrocortisone/Pramoxine (Proctofoam HC) 10 GM BOX PR PRN (21:27)
[2022-06-02] MEDS ORDERED: Prochlorperazine Maleate 5 MG TAB PO PRN (21:28)
[2022-06-02] MEDS ORDERED: SUMAtriptan Succinate 50 MG TAB PO PRN (21:29)
[2022-06-02] MEDS ORDERED: Lubiprostone 24 MCG CAP PO PRN (21:32)
[2022-06-02] MEDS: Losartan 25 MG TAB PO SCH (22:49)
[2022-06-03] MEDS: Ketorolac Tromethamine 30 MG/ML VIAL IVP SCH ×2 (06:07→12:02)
[2022-06-03 06:23] LABS: Hemoglobin 9.1 g/dL (12.0-16.0); Mean Corpuscular HGB CONC 34.4 g/dL (32.0-36.0); Mean Corpuscular Volume 98.8 fl (78.0-98.0); Mean Platelet Volume 6.7 fL (7.4-10.4); Platelet Count 192 10x3/uL (130-400); RBC Distribution Width 10.5 % (11.5-14.5); Red Blood Cell (RBC) Count 2.67 mill/uL (4.20-5.40); White Blood Cell (WBC) Count 8.4 10x3/uL (4.8-10.8)
[2022-06-03] MEDS: Dextrose 5 %-0.45 % NaCl 1,000 ML IV SCH (06:52)
[2022-06-03] MEDS ORDERED: Ferrous Gluconate 324 MG TAB PO SCH (08:00)
[2022-06-03] MEDS ORDERED: Spironolactone 25 MG TAB PO SCH (08:00)
[2022-06-03] MEDS: Losartan 25 MG TAB PO SCH (08:25)
[2022-06-03] MEDS: HYDROcodone/Acetaminophen 5/325 mg Tablet PO PRN ×2 (08:25→12:07)
[2022-06-03] MEDS: Aspirin 81 mg Enteric Coated Tablet PO SCH (08:26)
[2022-06-03] MEDS ORDERED: Multivitamin W/ Minerals 1 TAB PO SCH (09:00)
[2022-06-03] MEDS ORDERED: Senokot S 8.6-50 MG TAB PO SCH (09:00)
[2022-06-03 11:33] VITALS: BP 130/76; TEMP 98.4
[2022-06-03] MEDS ORDERED: Levothyroxine Sodium 50 MCG TAB PO SCH (15:00)
== END 2022-06-03 15:19 | disposition home or self-care (01) ==
LOC: SDC 05:29 → SURG B 11:56
PROVIDERS: ADMIT Orthopaedic Surgery; ATTEND Orthopaedic Surgery
PROC: 0SR904A Replacement of Right Hip Joint with Ceramic on Polyethylene Synthetic Substitute, Uncemented, Open Approach (ICD-10-PCS; principal; 2022-06-02)
DX: M16.11 Unilateral primary osteoarthritis, right hip (principal); K21.9 Gastro-esophageal reflux disease without esophagitis; I10 Essential (primary) hypertension; E03.9 Hypothyroidism, unspecified; Z79.890 Hormone replacement therapy; Z79.899 Other long term (current) drug therapy; Z88.2 Allergy status to sulfonamides; Z20.822 Contact with and (suspected) exposure to COVID-19
CPT/HCPCS: 36415; 72170; 85027; 96365; 96372; 96375; 96376; C1776; G0378; J1100; J1885; J2001; J2405; J2550; J2704; J3010; J3370-JW; J3490; S0020; U0002

== ENCOUNTER 2022-11-17 07:42 | Outpatient (CLI) | payer BC | END 2022-11-17 07:43 | disposition home or self-care (01) | LOC: BICMAMMO 07:42 | PROVIDERS: ATTEND Family Medicine | DX: Z12.31 Encounter for screening mammogram for malignant neoplasm of breast (principal) | CPT/HCPCS: 77063; 77067 ==

== ENCOUNTER 2023-11-19 12:15 | Outpatient (CLI) | payer BC | END 2023-11-19 12:16 | disposition home or self-care (01) | LOC: BICMAMMO 12:15 | PROVIDERS: ATTEND Family Medicine | DX: Z12.31 Encounter for screening mammogram for malignant neoplasm of breast (principal); Z80.3 Family history of malignant neoplasm of breast | CPT/HCPCS: 77063; 77067 ==